=== PATIENT | female | born 1995 | race Caucasian/White ===

== ENCOUNTER 2025-11-05 09:39 | Emergency (ER) | payer MEDICAID ==
[~2025-11-05] VITALS: Ht 160 cm; Wt 66.8 kg
[2025-11-05 09:40] VITALS: TEMP 97.9
[2025-11-05 12:30] VITALS: BP 124/77; PULSE 70; RESP 17; O2SAT 99
== END 2025-11-05 12:00 | disposition home or self-care (01) ==
LOC: EMS 09:42
DX: S46.012A Strain of muscle(s) and tendon(s) of the rotator cuff of left shoulder, initial encounter (principal); M25.512 Pain in left shoulder; Z88.1 Allergy status to other antibiotic agents; Z90.89 Acquired absence of other organs; Y04.2XXA Assault by strike against or bumped into by another person, initial encounter; Y93.89 Activity, other specified; Y92.89 Other specified places as the place of occurrence of the external cause; Y99.8 Other external cause status
CPT/HCPCS: 99283